=== PATIENT | male | born 1975 | race Two or more races ===

== ENCOUNTER 2019-07-28 10:37 | Emergency (ER) | payer SELFPAY ==
[~2019-07-28] VITALS: Ht 188 cm; Wt 113.4 kg
[2019-07-28 11:54] VITALS: BP 151/89
--- NOTE | 2019-07-28 11:55 | NUR ---
Patient discharged to home in stable condition. Written and verbal after care instructions given. Patient verbalizes understanding of instruction.
== END 2019-07-28 11:55 | disposition home or self-care (01) ==
LOC: ER 10:37
DX: M25.461 Effusion, right knee (principal)
CPT/HCPCS: 73564-TC